=== PATIENT | female | born 1955 | race Caucasian/White ===

== ENCOUNTER 2023-07-10 21:52 | Emergency (ER) | payer MEDICARE, OTHER ==
[2023-07-10 23:01] LABS: APPEARANCE,URINE SLT CLOUDY (Clear); BILIRUBIN,URINE 1+ (Negative); COLOR,URINE DARK YELLOW (Yellow); GLUCOSE,URINE NEGATIVE (Negative); KETONES,URINE TRACE (Negative); LEUKOCYTE ESTERASE,URINE 1+ (Negative); NITRITE,URINE NEGATIVE (Negative); OCCULT BLOOD,URINE TRACE-LYSED (Negative); PROTEIN,URINE 2+ (Negative); UROBILINOGEN,URINE 0.2 (0.2-1.0)
[2023-07-10 23:07] LABS: BACTERIA,URINE MODERATE /hpf (FEW); MUCUS,URINE MODERATE /hpf (FEW); WBC,URINE 20-30 /hpf (0-5)
[2023-07-10] MEDS ORDERED: Ketorolac 60 MG/2 ML SDV IM ONE (23:38)
[2023-07-10] MEDS ORDERED: Morphine 4 MG/ML Syringe IM ONE (23:39)
[2023-07-10] MEDS ORDERED: Naloxone 0.4 MG/ML SDV IVPUSH PRN (23:39)
[2023-07-11] MEDS ORDERED: Amoxicillin/Clavulanate K 875-125 MG Tab PO ONE (00:37)
== END 2023-07-11 01:06 | disposition home or self-care (01) ==
LOC: JD.ED 21:52
DX: N30.01 Acute cystitis with hematuria (principal); M53.3 Sacrococcygeal disorders, not elsewhere classified; I10 Essential (primary) hypertension; Z86.16 Personal history of COVID-19
CPT/HCPCS: 81001; 96372; 99283; A9270; J1885; J2270; 99284